=== PATIENT | female | born 1950 | race Caucasian/White ===

== ENCOUNTER 2018-02-14 01:41 | Emergency (ER) | payer OTHER, MEDICARE, BC ==
[2018-02-14] MEDS ORDERED: RX INFO: IV CONTRAST WAS GIVEN 1 EACH MISC MISCELLANE PRN (02:12)
[2018-02-14 02:47] LABS: Basophils % (A) 1 %; Eosinophils # (A) 0.1 k/uL (0-0.7); Eosinophils % (A) 1 %; HCT 39.1 % (34.0-46.0); HGB 13.3 gm/dL (11.4-16.0); Lymphocytes # (A) 1.8 k/uL (1.0-4.8); Lymphocytes % (A) 28 %; MCH 30.5 pg (25.0-35.0); MCV 89.8 fL (80.0-100.0); Mean Platelet Volume 6.6; Monocytes # (A) 0.5 k/uL (0-1.0); Monocytes % (A) 8 %; Neutrophils # (A) 3.8 k/uL (1.3-7.7); Neutrophils % (A) 60 %; Platelet Count 281 k/uL (150-450); RBC 4.36 m/uL (3.80-5.40); RDW 12.6 % (11.5-15.5); WBC 6.4 k/uL (3.8-10.6)
[2018-02-14 02:58] LABS: Albumin 4.3 g/dL (3.5-5.0); Calcium 9.7 mg/dL (8.4-10.2); Potassium 3.8 mmol/L (3.5-5.1); Total Bilirubin 0.4 mg/dL (0.2-1.3)
[2018-02-14 03:21] VITALS: RESP 16
--- NOTE | 2018-02-14 03:32 | CT ---
EXAMINATION TYPE: CT angio head DATE OF EXAM: 02/14/2018 3:18 AM COMPARISON: HISTORY: ringing in ears CT DLP: 1800.2 mGycm Automated exposure control for dose reduction was used. TECHNIQUE: Performed with IV Contrast, patient injected with 80 mL of Isovue 370. . Multiple axial sections were obtained of the brain with and without the IV contrast. There are 3-D po st processed images. Ventricles of normal size. There is no midline shift. There is no sign of intrac ranial hemorrhage. There is arterial flow in the vertebrobasilar artery system. Right vertebral artery is larger than th e left. Basilar artery fills mostly from the right side. There is arterial flow in the anterior middl e and posterior cerebral arteries. There is no mass effect. There is no evidence of aneurysm or neova scularity. There is arterial flow in the intracranial internal carotid arteries. There is normal cont rast opacification of the venous sinuses. There is patency of the posterior communicating arteries. T here is no evidence of stenosis. IMPRESSION: NEGATIVE CT ANGIOGRAM OF THE BRAIN.
[2018-02-14 03:36] VITALS: TEMP 98.6
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
[2018-02-14] MEDS ORDERED: cloNIDine HCL 0.1 MG TAB PO STA (04:01)
[2018-02-14 04:39] VITALS: BP 151/85; PULSE 91
== END 2018-02-14 04:45 | disposition home or self-care (01) ==
LOC: EC 01:41
DX: H93.13 Tinnitus, bilateral (principal); I10 Essential (primary) hypertension; Z86.718 Personal history of other venous thrombosis and embolism
CPT/HCPCS: 36415; 93005; 80053; 85025; 70496; 99284; Q9967

== ENCOUNTER 2018-02-17 13:53 | Emergency (ER) | payer OTHER, MEDICARE, BC ==
[2018-02-17 14:05] VITALS: TEMP 98.2
--- NOTE | 2018-02-17 15:33 | ED ---
General Adult HPI - General Chief complaint: Recheck/Abnormal Lab/Rx Stated complaint: Hypertension Time Seen by Provider: 02/17/18 14:38 Source: patient, RN notes reviewed, old records reviewed Mode of arrival: ambulatory Limitations: no limitations - History of Present Illness Initial comments: 67-year-old female presented for evaluation of elevated blood pressure. 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 She has been on Plavix and has had repeat imaging including MR venogram in November 2017. She has these records available for review. She was seen in the emergency department 3 days prior with elevated blood pressure, at that time she did have CT angiography. Patient contacted her neurologist's office today and was instructed to present to the emergency department for evaluation. Patient states she otherwise feels well, she states she exercised this morning. Denies headache. Denies chest pain. Denies abdominal pain. Denies nausea and vomiting. Denies focal numbness or weakness. Denies fever or chills - Related Data Home Medications Medication Instructions Recorded Confirmed Aspirin EC [Ecotrin] 325 mg PO DAILY@0900 02/17/18 02/17/18 Atorvastatin [Lipitor] 10 mg PO DAILY@0900 02/17/18 02/17/18 DULoxetine HCL [Cymbalta] 60 mg PO DAILY@0900 02/17/18 02/17/18 Dapsone 100 mg PO DAILY@1200 02/17/18 02/17/18 Entecavir [Baraclude] 0.5 mg PO Q48H 02/17/18 02/17/18 Furosemide [Lasix] 20 mg PO DAILY@0900 02/17/18 02/17/18 Gabapentin [Neurontin] 600 mg PO TID@0900,1500,2100 02/17/18 02/17/18 HYDROmorphone [Dilaudid] 2 mg PO BID@0700,1500,2100 02/17/18 02/17/18 Insulin Aspart [NovoLOG 15 unit SQ AC-TID 02/17/18 02/17/18 (formulary)] Insulin Glargine,Hum.rec.anlog 30 unit SQ HS 02/17/18 02/17/18 [Basaglar Kwikpen U-100] Labetalol [Trandate] 200 mg PO TID@0700,1500,2300 02/17/18 02/17/18 Methocarbamol [Robaxin] 1,000 mg PO BID PRN 02/17/18 02/17/18 [place]-3 Fatty Acids/Fish Oil [Fish 1 cap PO DAILY@0900 02/17/18 02/17/18 Oil 1,000 mg Softgel] Omeprazole 20 mg PO DAILY@1800 02/17/18 02/17/18 Tacrolimus [Prograf] 7 mg PO BID@0900,2100 02/17/18 02/17/18 Tamsulosin [Flomax] 0.4 mg PO HS@2100 02/17/18 02/17/18 Ursodiol [Actigall] 600 mg PO BID@0900,2100 02/17/18 02/17/18 predniSONE 5 mg PO DAILY@0900 02/17/18 02/17/18 Allergies Allergy/AdvReac Type Severity Reaction Status Date / Time No Known Allergies Allergy Verified 02/17/18 14:16 Review of Systems ROS Statement: Those systems with pertinent positive or pertinent negative responses have been documented in the HPI. ROS Other: All systems not noted in ROS Statement are negative. Past Medical History Past Medical History: Hypertension Additional Past Medical History / Comment(s): Intracranial abcess and left sided venous thrombosis History of Any Multi-Drug Resistant Organisms: None Reported Past Surgical History: Tonsillectomy Additional Past Surgical History / Comment(s): Recent brain sugery in 2018 Past Psychological History: No Psychological Hx Reported Smoking Status: Never smoker Past Alcohol Use History: None Reported Past Drug Use History: None Reported General Exam Limitations: no limitations General appearance: alert, in no apparent distress Head exam: Present: atraumatic, normocephalic Eye exam: Present: normal appearance, PERRL, EOMI ENT exam: Present: normal exam Neck exam: Present: normal inspection. Absent: tenderness, meningismus Respiratory exam: Present: normal lung sounds bilaterally. Absent: respiratory distress, wheezes, rales Cardiovascular Exam: Present: regular rate, normal rhythm GI/Abdominal exam: Present: soft. Absent: distended, tenderness Extremities exam: Present: normal inspection, normal capillary refill. Absent: pedal edema Neurological exam: Present: alert, oriented X3, CN II-XII intact, normal gait, other (No ataxia, normal [id number], negative Romberg). Absent: motor sensory deficit Psychiatric exam: Present: normal affect, normal mood Skin exam: Present: warm, dry, intact. Absent: cyanosis, diaphoretic Course Vital Signs 02/17/18 02/17/18 02/17/18 14:01 16:05 16:22 Temperature 98.2 F Pulse Rate 78 69 65 Respiratory 16 18 18 Rate Blood Pressure 163/85 190/92 179/81 O2 Sat by Pulse 98 98 98 Oximetry Medical Decision Making - Medical Decision Making 67-year-old female presents for evaluation of hypertension. Patient was evaluated emergency department 3 days prior with complaint of hypertension and tendinitis. She had previous history of cavernous sinus thrombosis. Head CT was obtained at that time which was negative for any acute intracranial pathology, she presents today with chief complaint of hypertension alone. No other associated symptoms. No headache. Given the patient's past medical history of did discuss the case with her neurologist Dr. Callahan. He is very familiar with this patient. Agrees that no further brain imaging is required at this time. Patient is stable for outpatient follow-up. She was previously on Norvasc, she will resume this medication. She is given her first dose in the emergency department. She will monitor her blood pressure and follow up with her primary care physician. - Lab Data Result diagrams: 02/17/18 15:30 02/17/18 15:30 Lab Results 02/17/18 02/17/18 Range/Units 15:30 15:30 WBC 12.9 H (3.8-10.6) k/uL RBC 4.68 (3.80-5.40) m/uL Hgb 14.6 (11.4-16.0) gm/dL Hct 42.1 (34.0-46.0) % MCV 89.9 (80.0-100.0) fL MCH 31.2 (25.0-35.0) pg MCHC 34.7 (31.0-37.0) g/dL RDW 12.4 (11.5-15.5) % Plt Count 365 (150-450) k/uL Sodium 140 (137-145) mmol/L Potassium 4.4 (3.5-5.1) mmol/L Chloride 108 H (98-107) mmol/L Carbon Dioxide 21 L (22-30) mmol/L Anion Gap 11 mmol/L BUN 19 H (7-17) mg/dL Creatinine 0.95 (0.52-1.04) mg/dL Est GFR (CKD-EPI)AfAm 72 (>60 ml/min/1.73 sqM) Est GFR (CKD-EPI)NonAf 62 (>60 ml/min/1.73 sqM) Glucose 118 H (74-99) mg/dL Calcium 10.0 (8.4-10.2) mg/dL Total Bilirubin 0.6 (0.2-1.3) mg/dL AST 40 H (14-36) U/L ALT 52 (9-52) U/L Alkaline Phosphatase 75 (38-126) U/L Total Protein 7.6 (6.3-8.2) g/dL Albumin 4.5 (3.5-5.0) g/dL Disposition Clinical Impression: Hypertension Disposition: HOME SELF-CARE Condition: Good Instructions: Chronic Hypertension (ED), Hypertension (ED) Additional Instructions: Please resume Norvasc and monitor blood pressure. Follow up with primary care physician. Is patient prescribed a controlled substance at d/c from ED?: No Referrals: Antonio Mccarthy MD [Primary Care Provider] - 1-2 days Time of Disposition: 17:17
[2018-02-17 15:57] LABS: HCT 42.1 % (34.0-46.0); HGB 14.6 gm/dL (11.4-16.0); MCH 31.2 pg (25.0-35.0); MCHC 34.7 g/dL (31.0-37.0); MCV 89.9 fL (80.0-100.0); Mean Platelet Volume 6.9; Platelet Count 365 k/uL (150-450); RBC 4.68 m/uL (3.80-5.40); RDW 12.4 % (11.5-15.5); WBC 12.9 k/uL (3.8-10.6)
[2018-02-17 16:01] LABS: Albumin 4.5 g/dL (3.5-5.0); Potassium 4.4 mmol/L (3.5-5.1); Total Bilirubin 0.6 mg/dL (0.2-1.3); Total Protein 7.6 g/dL (6.3-8.2)
[2018-02-17] MEDS ORDERED: hydrALAZINE HCL 20 MG/ML 1 ML VIAL IVP STA (16:02)
[2018-02-17] MEDS ORDERED: SODIUM CHLORIDE 0.9% 500 ML 500 ML IV ONE (16:03)
[2018-02-17 16:22] VITALS: RESP 18
[2018-02-17] MEDS ORDERED: amLODIPine 5 MG TAB PO STA (17:12)
[2018-02-17 17:19] VITALS: BP 172/84; PULSE 81
== END 2018-02-17 17:36 | disposition home or self-care (01) ==
LOC: EC 13:53
DX: I10 Essential (primary) hypertension (principal); Z79.02 Long term (current) use of antithrombotics/antiplatelets; Z79.4 Long term (current) use of insulin; Z79.52 Long term (current) use of systemic steroids; Z79.82 Long term (current) use of aspirin; Z79.899 Other long term (current) drug therapy; Z86.79 Personal history of other diseases of the circulatory system; Z98.890 Other specified postprocedural states; Z79.891 Long term (current) use of opiate analgesic
CPT/HCPCS: 36415; 80053; 85027; 99283; 96374; J0360

== ENCOUNTER 2019-03-17 16:08 | Emergency (ER) | payer MEDICARE, BC ==
[2019-03-17 16:15] VITALS: RESP 18; TEMP 98.1
--- NOTE | 2019-03-17 16:40 | ED ---
General Adult HPI - General Chief complaint: Abdominal Pain Stated complaint: Abd pain Time Seen by Provider: 03/17/19 16:16 Source: patient Mode of arrival: ambulatory Limitations: no limitations - History of Present Illness Initial comments: Patient presents the ED complaining of having left lower quadrant abdominal pain since yesterday evening. Patient states that her pain has been constant since onset. Patient states that her pain is exacerbated by ambulation and palpation. Patient denies trauma or injury, fever or chills, headache, chest pain, dyspnea, dizziness, upper abdominal pain, back or flank pain, nausea or vomiting, diarrhea or constipation, bloody or melanotic stool, dysuria/hematuria/urinary frequency/urinary symptoms, vaginal bleeding, or any other symptoms or complaints. Patient states that her pain is currently 3 out of 10 in intensity. Patient declines pain medication at this time. - Related Data Home Medications Medication Instructions Recorded Confirmed Acetaminophen Tab [Tylenol] 650 mg PO Q4H PRN 02/21/18 02/21/18 Apixaban [Eliquis] 5 mg PO BID 02/21/18 02/21/18 Atorvastatin [Lipitor] 40 mg PO Q48H 02/21/18 02/21/18 Levothyroxine Sodium [Synthroid] 112 mcg PO DAILY 02/21/18 02/21/18 Lisinopril 40 mg PO HS 02/21/18 02/21/18 amLODIPine [Norvasc] 5 mg PO DAILY 02/21/18 02/21/18 Previous Rx's Medication Instructions Recorded Aspirin 81 mg PO DAILY chew 02/24/18 Atorvastatin [Lipitor] 40 mg PO HS tab 02/24/18 hydrALAZINE HCL 25 mg PO BID #0 02/24/18 Amoxicillin/Potassium Clav 1 tab PO Q12HR 10 Days #20 tab 03/17/19 [Augmentin 875-125 Tablet] Allergies Allergy/AdvReac Type Severity Reaction Status Date / Time No Known Allergies Allergy Verified 03/17/19 16:14 Review of Systems ROS Statement: Those systems with pertinent positive or pertinent negative responses have been documented in the HPI. ROS Other: All systems not noted in ROS Statement are negative. Past Medical History Past Medical History: Cancer, GERD/Reflux, Hyperlipidemia, Hypertension, Mitral Valve Prolapse (MVP), Osteoarthritis (OA), Thyroid Disorder Additional Past Medical History / Comment(s): 3-2018 dx w/ Intracranial abcess and left sided venous thrombosis. 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 hashimotos History of Any Multi-Drug Resistant Organisms: None Reported Past Surgical History: Hysterectomy, Tonsillectomy Additional Past Surgical History / Comment(s): Recent brain sugery in 2018, neto carpal tunnel, x2 lt knee arthroscopies, d&c. Past Anesthesia/Blood Transfusion Reactions: Postoperative Nausea & Vomiting (PONV) Additional Past Anesthesia/Blood Transfusion Reaction / Comment(s): hx past blo od transfusion-no reaction. Past Psychological History: No Psychological Hx Reported Smoking Status: Former smoker Past Alcohol Use History: None Reported Past Drug Use History: None Reported - Past Family History Mother Family Medical History: Coronary Artery Disease (CAD), Hyperlipidemia, Hypertension Additional Family Medical History / Comment(s): cardaic stent, past sbo- requiring sx. Father Additional Family Medical History / Comment(s): . had hx of depression, hiatal hernia General Exam Limitations: no limitations General appearance: alert, in no apparent distress Head exam: Present: atraumatic, normocephalic Eye exam: Present: normal appearance, EOMI ENT exam: Present: mucous membranes moist Neck exam: Present: other (Trachea is in midline) Respiratory exam: Present: normal lung sounds bilaterally. Absent: respiratory distress, wheezes, rales, rhonchi Cardiovascular Exam: Present: regular rate, normal rhythm, normal heart sounds, other (Normal radial pulses bilaterally) GI/Abdominal exam: Present: soft, normal bowel sounds, other (Mild left lower quadrant abdominal tenderness). Absent: distended, guarding, rebound Back exam: Absent: CVA tenderness (R), CVA tenderness (L) Neurological exam: Present: alert, oriented X3 Psychiatric exam: Present: normal affect, normal mood Skin exam: Present: warm, dry, intact, normal color Course Vital Signs 03/17/19 03/17/19 16:12 18:01 Temperature 98.1 F Pulse Rate 81 66 Respiratory 18 18 Rate Blood Pressure 163/82 157/79 O2 Sat by Pulse 99 99 Oximetry Medical Decision Making - Medical Decision Making Patient's labs show a minimally elevated white blood cell count, and patient's CT abdomen/pelvis is positive for acute diverticulitis of the descending colon. Given these findings, and given the patient's physical examination, I suspect that the patient's symptoms are secondary to acute diverticulitis. Patient was also made aware of her CT finding of a cystic lesion in her right ovary, and she was instructed to follow up closely with her primary care provider to have a follow-up ultrasound ordered-> she agrees to do so. Patient continues to deny having any significant pain while in the ED, and she denies development of any new symptoms while in the ED. Patient's abdomen remains soft and without any surgical signs on exam. Patient is aware of her test results, and she feels comfortable going home at this time. Patient was given her first dose of Augmentin in the ED. Patient was counseled about acute diverticulitis, and she was clearly explained return and follow-up instructions. Patient feels comfortable going home at this time, and she feels comfortable with this plan. - Lab Data Result diagrams: 03/17/19 16:40 03/17/19 16:40 Lab Results 03/17/19 03/17/19 03/17/19 Range/Units 16:40 16:40 16:40 WBC 11.5 H (3.8-10.6) k/uL RBC 4.23 (3.80-5.40) m/uL Hgb 13.3 (11.4-16.0) gm/dL Hct 39.0 (34.0-46.0) % MCV 92.3 (80.0-100.0) fL MCH 31.5 (25.0-35.0) pg MCHC 34.2 (31.0-37.0) g/dL RDW 12.0 (11.5-15.5) % Plt Count 298 (150-450) k/uL Neutrophils % 75 % Lymphocytes % 16 % Monocytes % 6 % Eosinophils % 1 % Basophils % 1 % Neutrophils # 8.6 H (1.3-7.7) k/uL Lymphocytes # 1.8 (1.0-4.8) k/uL Monocytes # 0.7 (0-1.0) k/uL Eosinophils # 0.1 (0-0.7) k/uL Basophils # 0.1 (0-0.2) k/uL Sodium 137 (137-145) mmol/L Potassium 4.0 (3.5-5.1) mmol/L Chloride 105 (98-107) mmol/L Carbon Dioxide 22 (22-30) mmol/L Anion Gap 10 mmol/L BUN 20 H (7-17) mg/dL Creatinine 0.78 (0.52-1.04) mg/dL Est GFR (CKD-EPI)AfAm >90 (>60 ml/min/1.73 sqM) Est GFR (CKD-EPI)NonAf 78 (>60 ml/min/1.73 sqM) Glucose 116 H (74-99) mg/dL Plasma Lactic Acid Torsten 0.7 (0.7-2.0) mmol/L Calcium 9.4 (8.4-10.2) mg/dL Total Bilirubin 0.6 (0.2-1.3) mg/dL AST 24 (14-36) U/L ALT 30 (9-52) U/L Alkaline Phosphatase 96 (38-126) U/L Total Protein 7.3 (6.3-8.2) g/dL Albumin 4.3 (3.5-5.0) g/dL Lipase 149 (23-300) U/L Urine Color Urine Appearance (Clear) Urine pH (5.0-8.0) Ur Specific [place] (1.001-1.035) Urine Protein (Negative) Urine Glucose (UA) (Negative) Urine Ketones (Negative) Urine Blood (Negative) Urine Nitrite (Negative) Urine Bilirubin (Negative) Urine Urobilinogen (<2.0) mg/dL Ur Leukocyte Esterase (Negative) Urine RBC (0-5) /hpf Urine WBC (0-5) /hpf Ur Squamous Epith Cells (0-4) /hpf Urine Bacteria (None) /hpf Urine Mucus (None) /hpf 03/17/19 Range/Units 16:40 WBC (3.8-10.6) k/uL RBC (3.80-5.40) m/uL Hgb (11.4-16.0) gm/dL Hct (34.0-46.0) % MCV (80.0-100.0) fL MCH (25.0-35.0) pg MCHC (31.0-37.0) g/dL RDW (11.5-15.5) % Plt Count (150-450) k/uL Neutrophils % % Lymphocytes % % Monocytes % % Eosinophils % % Basophils % % Neutrophils # (1.3-7.7) k/uL Lymphocytes # (1.0-4.8) k/uL Monocytes # (0-1.0) k/uL Eosinophils # (0-0.7) k/uL Basophils # (0-0.2) k/uL Sodium (137-145) mmol/L Potassium (3.5-5.1) mmol/L Chloride (98-107) mmol/L Carbon Dioxide (22-30) mmol/L Anion Gap mmol/L BUN (7-17) mg/dL Creatinine (0.52-1.04) mg/dL Est GFR (CKD-EPI)AfAm (>60 ml/min/1.73 sqM) Est GFR (CKD-EPI)NonAf (>60 ml/min/1.73 sqM) Glucose (74-99) mg/dL Plasma Lactic Acid [place] (0.7-2.0) mmol/L Calcium (8.4-10.2) mg/dL Total Bilirubin (0.2-1.3) mg/dL AST (14-36) U/L ALT (9-52) U/L Alkaline Phosphatase (38-126) U/L Total Protein (6.3-8.2) g/dL Albumin (3.5-5.0) g/dL Lipase (23-300) U/L Urine Color Light Yellow Urine Appearance Clear (Clear) Urine pH 5.0 (5.0-8.0) Ur Specific [place] 1.007 (1.001-1.035) Urine Protein Negative (Negative) Urine Glucose (UA) Negative (Negative) Urine Ketones Negative (Negative) Urine Blood Negative (Negative) Urine Nitrite Negative (Negative) Urine Bilirubin Negative (Negative) Urine Urobilinogen <2.0 (<2.0) mg/dL Ur Leukocyte Esterase Trace H (Negative) Urine RBC <1 (0-5) /hpf Urine WBC 4 (0-5) /hpf Ur Squamous Epith Cells <1 (0-4) /hpf Urine Bacteria Rare H (None) /hpf Urine Mucus Rare H (None) /hpf - Radiology Data Radiology results: report reviewed (CT abdomen/pelvis with IV contrast shows acute diverticulitis of the descending colon without evidence of abscess or free air; it also shows a 1.7 cm cystic lesion in the right ovary with recommendation for nonemergent follow-up ultrasound ) Disposition Clinical Impression: Abdominal pain, Acute diverticulitis Narrative: Right ovarian cystic lesion Disposition: HOME SELF-CARE Condition: Stable Instructions (If sedation given, give patient instructions): Ovarian Cyst (ED), Diverticulitis (ED), Abdominal Pain (ED) Additional Instructions: Return to the ER immediately should you develop new or worsening pain, a fever, vomiting, feeling dizzy or faint, shortness of breath, or new or worsening symptoms. Follow up closely with her primary care provider. Prescriptions: Amoxicillin/Potassium Clav [Augmentin 875-125 Tablet] 1 tab PO Q12HR 10 Days #20 tab Is patient prescribed a controlled substance at d/c from ED?: No Referrals: Antonio Mccarthy MD [Primary Care Provider] - 1-2 days Time of Disposition: 18:13
[2019-03-17 16:55] LABS: Basophils # (A) 0.1 k/uL (0-0.2); Basophils % (A) 1 %; Eosinophils # (A) 0.1 k/uL (0-0.7); Eosinophils % (A) 1 %; HGB 13.3 gm/dL (11.4-16.0); Lymphocytes # (A) 1.8 k/uL (1.0-4.8); Lymphocytes % (A) 16 %; MCH 31.5 pg (25.0-35.0); MCHC 34.2 g/dL (31.0-37.0); MCV 92.3 fL (80.0-100.0); Mean Platelet Volume 5.7; Monocytes # (A) 0.7 k/uL (0-1.0); Monocytes % (A) 6 %; Neutrophils # (A) 8.6 k/uL (1.3-7.7); Neutrophils % (A) 75 %; Platelet Count 298 k/uL (150-450); RBC 4.23 m/uL (3.80-5.40); WBC 11.5 k/uL (3.8-10.6)
[2019-03-17 17:00] LABS: Appearance,Urine Clear (Clear); Bacteria,Urine Rare /hpf; Bilirubin,Urine Negative (Negative); Blood,Urine Negative (Negative); Color,Urine Light Yellow; Glucose,Urine (UA) Negative (Negative); Ketones,Urine Negative (Negative); Leukocyte Esterase,Urine Trace (Negative); Mucus,Urine Rare /hpf; Nitrite,Urine Negative (Negative); Protein,Urine Negative (Negative); RBC,Urine <1 /hpf (0-5); Specific Gravity,Urine 1.007 (1.001-1.035); Squamous Epithelial Cell,Urine <1 /hpf (0-4); Urobilinogen,Urine <2.0 mg/dL (<2.0)
[2019-03-17 17:11] LABS: ALT 30 U/L (9-52); AST 24 U/L (14-36); African American GFR (CKD) >90 (>60 ml/min/1.73 sqM); Albumin 4.3 g/dL (3.5-5.0); Alkaline Phosphatase 96 U/L (38-126); Anion Gap 10 mmol/L; Blood Urea Nitrogen 20 mg/dL (7-17); Calcium 9.4 mg/dL (8.4-10.2); Carbon Dioxide 22 mmol/L (22-30); Chloride 105 mmol/L (98-107); Glucose 116 mg/dL (74-99); Non-African American GFR(CKD) 78 (>60 ml/min/1.73 sqM); Sodium 137 mmol/L (137-145); Total Bilirubin 0.6 mg/dL (0.2-1.3); Total Protein 7.3 g/dL (6.3-8.2)
--- NOTE | 2019-03-17 17:55 | CT ---
EXAMINATION TYPE: CT abdomen pelvis w con DATE OF EXAM: 03/17/2019 COMPARISON: NONE HISTORY: 68-year-old female Left lower quadrant abdominal pain. TECHNIQUE: Contiguous axial scanning of the abdomen and pelvis following administration of 100 ml Iso janel 300 IV contrast. Delayed images through the kidneys and coronal/sagittal reconstructions perform ed. CT DLP: 644.3 mGycm Automated exposure control for dose reduction was used. FINDINGS: Heart upper limits of normal in size without pericardial effusion. Tiny hiatal hernia. Lung bases krishna ar without pleural effusion. Old healed right-sided rib fracture deformities. A 6 mm hypodensity within the mid hepatic dome too small for accurate CT characterization, probable c yst. Bile duct is borderline caliber at 6 mm with normal distal tapering. No abnormal gallbladder distenti on. Portal venous system is patent. Adrenal glands, left kidney, spleen, and pancreas appear within normal limits. Diverticulum of the th ird portion of the duodenum projecting up behind the pancreatic head region. Extrarenal pelvis on the right. No dilated small bowel, free fluid, or free air. No mesenteric or retroperitoneal lymphadenopathy. Mild/moderate stool burden. Generalized colonic diverticulosis, greatest on the left side of the colo n and within the sigmoid colon. Along the descending colon, there is moderate circumferential wall thickening with focal and mild to moderate inflammation. This appears to be centered over a large 2.0 cm diverticulum, refer to axial i mage 42 and coronal image 53. Mild to moderate tracking edema. Mild to moderate discogenic calcifications infrarenal abdominal aorta without aneurysm. Bladder urine distended. Uterus surgically absent. Both ovaries are visualized. There is a 1.7 cm cys tic lesion within the right ovary. No abnormal fluid collection the pelvis or pelvic lymphadenopathy. Bones: Mild degenerative changes of the hips no osseous destructive process. IMPRESSION: 1. EXAM POSITIVE FOR ACUTE DIVERTICULITIS ALONG THE DESCENDING COLON WITH MILD TO MODERATE SURROUNDIN G INFLAMMATION. NO ABSCESS OR FREE AIR. 2. A 1.7 CM CYSTIC LESION IN THE RIGHT OVARY, ABNORMAL IN A POSTMENOPAUSAL FEMALE. NONEMERGENT FOLLOW -UP ULTRASOUND CAN PROVIDE FURTHER CHARACTERIZATION AND CAN DETERMINE SUBSEQUENT FOLLOW-UP RECOMMENDA TIONS.
[2019-03-17 18:02] VITALS: BP 157/79; PULSE 66
[2019-03-17] MEDS ORDERED: AMOXIC-POT CLAV 875-125MG 1 EACH TAB PO STA (18:05)
== END 2019-03-17 18:35 | disposition home or self-care (01) ==
LOC: EC 16:08
DX: K57.32 Diverticulitis of large intestine without perforation or abscess without bleeding (principal); D72.829 Elevated white blood cell count, unspecified; N83.201 Unspecified ovarian cyst, right side; E78.5 Hyperlipidemia, unspecified; I10 Essential (primary) hypertension; M19.90 Unspecified osteoarthritis, unspecified site; E06.3 Autoimmune thyroiditis; Z87.891 Personal history of nicotine dependence; Z79.01 Long term (current) use of anticoagulants; Z79.890 Hormone replacement therapy; Z79.891 Long term (current) use of opiate analgesic; Z79.899 Other long term (current) drug therapy; Z85.44 Personal history of malignant neoplasm of other female genital organs; Z92.21 Personal history of antineoplastic chemotherapy; Z87.19 Personal history of other diseases of the digestive system; Z90.710 Acquired absence of both cervix and uterus
CPT/HCPCS: 36415; 80053; 83605; 83690; 85025; 81001; 74177; 99284; Q9967

== ENCOUNTER → 2019-03-23 | Outpatient (CLI) | payer MEDICARE, BC ==
--- NOTE | 2019-03-23 09:09 | US ---
EXAMINATION TYPE: US transvaginal DATE OF EXAM: 03/23/2019 COMPARISON: CT 6 days ago. CLINICAL HISTORY: N83.01 FOLLICULAR CYST RT OVARY. Partial hysterectomy, history of right ovarian cys t TECHNIQUE: Transvaginal (TV) Date of LMP: unknown EXAM MEASUREMENTS: Uterus: Surgically absent Endometrial Stripe: Surgically absent Right Ovary: 2.8 x 1.4 x 1.9 cm Left Ovary: unable to visualize 1. Uterus: Surgically absent 2. Endometrium: Surgically absent 3. Right Ovary: hypoechoic area = 1.9 x 1.5 x 1.6cm 4. Left Ovary: Obscured by overlying bowel gas 5. Bilateral Adnexa: wnl Uterus is surgically absent. No free fluid in pelvis. Remnant right ovary seen. Isoechoic well-define d 1.9 cm lesion occupies majority of right ovary. Left ovary not identified. No adnexal mass seen. IMPRESSION: There is 1.9 cm nonsimple cyst within right ovary corresponding to CT abnormality hypoden se lesion. Neoplasm cannot be excluded. Gynecology oncology referral advised.
== END | disposition home or self-care (01) ==
LOC: RADUSWWP 07:58
PROVIDERS: ATTEND Internal Medicine Geriatric Medicine
DX: N83.01 Follicular cyst of right ovary (principal)
CPT/HCPCS: 76830

== ENCOUNTER → 2019-10-05 | Outpatient (CLI) | payer MEDICARE, BC ==
--- NOTE | 2019-10-05 08:25 | US ---
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 Follow up ovarian cy st, 3, para 3, history of partial hysterectomy TECHNIQUE: Transvaginal exam only per ordering physician. Date of LMP: Unknown FINDINGS: EXAM MEASUREMENTS: Right Ovary: 3.0 x 1.8 x 1.8 cm Left Ovary: not seen 1. Uterus: surgically absent 2. Endometrium: surgically absent 3. Right Ovary: 2.0 x 1.5 x 1.5cm heterogeneous hypoechoic area. (Previously measured 19 x 16 x 15 m m) 4. Left Ovary: not seen 5. Bilateral Adnexa: wnl 6. Posterior cul-de-sac: wnl IMPRESSION: 1. Status post hysterectomy. Left ovary cannot be visualized. 2. Relatively stable 2.0 x 1.5 cm heterogeneous hypoechoic right ovarian lesion (previously measured at 1.9 x 1.6 cm). Continued follow-up as indicated.
== END | disposition home or self-care (01) ==
LOC: RADUSWWP 07:29
PROVIDERS: ATTEND Internal Medicine Geriatric Medicine
DX: C57.8 Malignant neoplasm of overlapping sites of female genital organs (principal); Z90.710 Acquired absence of both cervix and uterus
CPT/HCPCS: 76830

== ENCOUNTER → 2019-10-05 | Outpatient (CLI) | payer MEDICARE, BC | END | disposition home or self-care (01) | LOC: LABWHC1 08:09 | PROVIDERS: ATTEND Internal Medicine Geriatric Medicine | DX: N83.9 Noninflammatory disorder of ovary, fallopian tube and broad ligament, unspecified (principal) | CPT/HCPCS: 36415; 81503 ==

== ENCOUNTER → 2020-04-02 | Outpatient (CLI) | payer MEDICARE, BC ==
--- NOTE | 2020-04-02 21:13 | US ---
EXAMINATION TYPE: US transvaginal DATE OF EXAM: 04/02/2020 COMPARISON: 10/05/2019 CLINICAL HISTORY: N83.29 Ovarian cyst. TECHNIQUE: Transvaginal Date of LMP: Post menopausal patient EXAM MEASUREMENTS: Uterus: Surgically absent Endometrial Stripe: Surgically absent Right Ovary: 2.4 x 1.6 x 2.1 cm Left Ovary: Surgically absent 1. Uterus: Surgically absent 2. Endometrium: Surgically absent 3. Right Ovary: 1.3 x 1.6 x 1.3cm hypoechoic oval structure 4. Left Ovary: Surgically absent 5. Bilateral Adnexa: wnl 6. Posterior cul-de-sac: wnl IMPRESSION: 1. Cystlike structure right ovary. This is not a simple cyst. Monitoring is recommended.
== END | disposition home or self-care (01) ==
LOC: RADUSWWP 16:04
PROVIDERS: ATTEND Obstetrics & Gynecology Gynecologic Oncology
DX: N83.299 Other ovarian cyst, unspecified side (principal)
CPT/HCPCS: 76830

== ENCOUNTER → 2020-04-03 | Outpatient (CLI) | payer MEDICARE, BC | END | disposition home or self-care (01) | LOC: LABWHC1 11:25 | PROVIDERS: ATTEND Obstetrics & Gynecology Gynecologic Oncology | DX: N83.299 Other ovarian cyst, unspecified side (principal) | CPT/HCPCS: 36415; 86304 ==

== ENCOUNTER → 2021-04-21 | Outpatient (CLI) | payer MEDICARE, BC ==
--- NOTE | 2021-04-21 14:28 | US ---
EXAMINATION TYPE: US transvaginal DATE OF EXAM: 04/21/2021 COMPARISON: 04-02-20 and prior CLINICAL HISTORY: R19.02 Pelvic Mass. TECHNIQUE: Transvaginal (TV). Transvaginal sonographic images were medically necessary to better as sess the following anatomy: Ovaries Date of LMP: Post madhavi EXAM MEASUREMENTS: Uterus: Surgically absent cm Endometrial Stripe: Surgically absent Right Ovary: 2.2x1.9x1.7 cm Left Ovary: Not seen 1. Uterus: Surgically absent 2. Endometrium: Surgically absent 3. Right Ovary: 1.9x1.5x1.5cm hypoechoic oval structure 4. Left Ovary: Obscured by overlying bowel gas 5. Bilateral Adnexa: Obscured by overlying bowel gas IMPRESSION: 1. Essentially stable right ovarian hypoechoic lesion with prior measurement measuring 2.0 x 1.5 cm. Follow-up as indicated.
== END | disposition home or self-care (01) ==
LOC: RADUSWWP 13:40
PROVIDERS: ATTEND Obstetrics & Gynecology Gynecologic Oncology
DX: C57.8 Malignant neoplasm of overlapping sites of female genital organs (principal); R19.02 Left upper quadrant abdominal swelling, mass and lump
CPT/HCPCS: 76830; 86304

== ENCOUNTER → 2023-07-05 | Outpatient (CLI) | payer MEDICARE, BC ==
--- NOTE | 2023-07-06 15:47 | US ---
EXAMINATION TYPE: US transvaginal DATE OF EXAM: 07/05/2023 COMPARISON: 04/21/2021 CLINICAL INDICATION: Female, 72 years old with history of R19.02 PELVIC MASS; F/U right ovary TECHNIQUE: Transvaginal sonographic images of the pelvis were acquired. EXAM MEASUREMENTS: Right Ovary: 2.8 x 2.1 x 2.2 cm 1. Uterus: Surgically absent 2. Right Ovary: Oval hypoechoic lesion within right ovary as visualized on priors-relatively similar compared to the prior. Currently measures 1.9 x 1.9 x 1.9 cm, (prior size= 1.9 x 1.5 x 1.5 cm) 4. Left Ovary: Obscured by overlying bowel gas 5. Bilateral Adnexa: wnl 6. Posterior cul-de-sac: wnl IMPRESSION: 1. A round hypoechoic lesion of the right ovary stable to minimally larger at 1.9 x 1.9 x 1.9 cm (abelardo david 1.9 x 1.5 x 1.5 cm, previously, back in 2020). Ongoing annual surveillance follow-up can be perfo rmed. 2. The left ovary was obscured and could not be visualized. 3. Status post hysterectomy.
== END | disposition home or self-care (01) ==
LOC: RADUSWWP 14:55
PROVIDERS: ATTEND Obstetrics & Gynecology Gynecologic Oncology
DX: R19.02 Left upper quadrant abdominal swelling, mass and lump (principal); Z90.721 Acquired absence of ovaries, unilateral
CPT/HCPCS: 76830